=== PATIENT | female | born 1990 | race Caucasian/White ===

== ENCOUNTER 2024-01-04 05:36 | Inpatient (IN) ==
[2024-01-04] MEDS: Lactated Ringers 1000 ml BAG 1,000 ML IV SCH ×2 (06:24→10:51)
[2024-01-04 06:35] LABS: Hemoglobin 12.1 g/dL (11.5-14.3); Mean Corpuscular Hemoglobin 32.4 pg (27-33); Mean Corpuscular Hgb Conc 34.6 g/dL (31-36); Mean Corpuscular Volume 93.6 fL (80-97); Mean Platelet Volume 9.8 fL (7.5-11.2); Platelet Count 219 10^3/uL (150-450); Red Blood Count 3.74 10^6/uL (3.63-4.92); Red Cell Distribution Width 13.8 % (12-17); White Blood Count 11.9 10^3/uL (3.8-11.8)
[2024-01-04] MEDS: Buffered Lidocaine 1% SYRIN 1 ml INTRADERM ONE ×2 (07:02→10:49)
[2024-01-04 07:20] LABS: ABS Basophils 0.1 10^3/uL (0.0-0.1); ABS Eosinophils 0.1 10^3/uL (0.0-0.5); ABS Lymphocytes 2.7 10^3/uL (1.0-4.8); ABS Monocytes 1.3 10^3/uL (0.0-0.9); ABS Neutrophils 7.8 10^3/uL (1.5-7.6); Eosinophil % 0.8 %; Lymphocyte % 22.5 %
[2024-01-04] MEDS: Sodium Citrate/Citric Acid LIQ 15 ML UDC PO ONE ×2 (07:22→10:52)
[2024-01-04] MEDS ORDERED: Morphine PF AMP (0.5MG/ML) 5 MG/10 ML AMP ONE (07:26)
[2024-01-04] MEDS ORDERED: Metoclopramide 5 MG/ML VIAL (10 mg) IV PRN (07:31)
[2024-01-04] MEDS ORDERED: Naloxone 0.4 mg VIAL 0.4 mg/ml 1 ml VIAL IV PUSH PRN (07:31)
[2024-01-04] MEDS ORDERED: Ondansetron 4 mg VIAL 2 MG/ML 2 ml VIAL IV PRN (07:31)
[2024-01-04] MEDS: ceFOXitin 2 GM IVPREMIX 2 GM/50 ML BAG IVPB ONE (08:20)
[2024-01-04 09:04] LABS: Urine Appearance Clear; Urine Bilirubin Negative (Negative); Urine Blood Trace (Negative); Urine Color Colorless; Urine Glucose Negative (Negative); Urine Ketones Negative (Negative); Urine Nitrite Negative (Negative); Urine Protein Negative (Negative); Urine Specific Gravity 1.004 (1.002-1.030); Urine Urobilinogen Negative (Negative); Urine pH 7.5 (5.0-8.0)
[2024-01-04] MEDS ORDERED: Ondansetron 4 mg VIAL 2 MG/ML 2 ml VIAL ONE (09:16)
[2024-01-04] MEDS ORDERED: Dexamethasone IV 4 MG/ML VIAL 1 ml VIAL ONE (09:16)
[2024-01-04 09:56] LABS: Urine Benzodiazepine Screen None Detected (None Detect); Urine Cannabinoids Screen None Detected (None Detect); Urine Opiates Screen None Detected (None Detect)
[2024-01-04] MEDS: Acetaminophen IV 1 GM/100ML 1,000 MG/100 ML BAG IV PRN (10:21)
[2024-01-04] MEDS ORDERED: Glycerin ADULT 2.4 gm SUPP PR PRN (10:22)
[2024-01-04] MEDS ORDERED: Witch Hazel PAD JAR TOPICAL PRN (10:22)
[2024-01-04] MEDS: Lactated Ringers 1000 ml BAG 1,000 ML IV ONE (10:48)
[2024-01-04] MEDS: Oxytocin in LR 20,000 MILLI.UNIT/1,000 ML BAG IV SCH (10:51)
[2024-01-04] MEDS ORDERED: Lactated Ringers 1000 ml BAG 1,000 ML IV SCH (11:00)
[2024-01-05 06:39] LABS: Hematocrit 31.9 % (35-45); Hemoglobin 10.8 g/dL (11.5-14.3); Mean Corpuscular Hemoglobin 32.1 pg (27-33); Mean Corpuscular Hgb Conc 33.9 g/dL (31-36); Mean Corpuscular Volume 94.7 fL (80-97); Mean Platelet Volume 9.9 fL (7.5-11.2); Platelet Count 223 10^3/uL (150-450); Red Blood Count 3.37 10^6/uL (3.63-4.92); Red Cell Distribution Width 13.8 % (12-17); White Blood Count 17.3 10^3/uL (3.8-11.8)
[2024-01-05 06:58] LABS: ABS Eosinophils 0.1 10^3/uL (0.0-0.5); ABS Lymphocytes 3.8 10^3/uL (1.0-4.8); ABS Monocytes 2.1 10^3/uL (0.0-0.9); ABS Neutrophils 11.2 10^3/uL (1.5-7.6); Eosinophil % 0.4 %; Lymphocyte % 22.2 %; RBC Morphology Normal (Normal)
== END 2024-01-07 13:55 | disposition home or self-care (01) | DRG 788 ==
LOC: MCHOB 05:36
PROVIDERS: ADMIT Obstetrics & Gynecology; ATTEND Obstetrics & Gynecology